=== PATIENT | female | born 1975 | race Native Hawaiian/Other Pacific Islander ===

== ENCOUNTER 2022-08-05 11:37 | Outpatient (CLI) | payer OTHER | END 2022-08-05 19:49 | disposition home or self-care (01) | LOC: RESP 11:37 | PROVIDERS: ATTEND Nurse Practitioner Family | DX: R00.2 Palpitations (principal) | CPT/HCPCS: 93005; 93225 ==

== ENCOUNTER 2022-09-02 11:15 | Outpatient (CLI) | payer OTHER ==
[2022-09-02 11:38] LABS: PLATELET COUNT 248 K/uL (152-353)
[2022-09-02 11:50] LABS: POTASSIUM 3.2 mmol/L (3.6-5.2)
== END 2022-09-02 22:27 | disposition home or self-care (01) ==
LOC: CT 11:15 → LABW 11:15
PROVIDERS: ATTEND Nurse Practitioner Family
DX: R19.7 Diarrhea, unspecified (principal)
CPT/HCPCS: 36415; 80053; 85027

== ENCOUNTER 2022-10-20 09:20 | Outpatient (CLI) | payer OTHER | END 2022-10-20 19:02 | disposition home or self-care (01) | LOC: MAMMO 09:20 | PROVIDERS: ATTEND Nurse Practitioner Family | DX: Z12.31 Encounter for screening mammogram for malignant neoplasm of breast (principal) ==